=== PATIENT | male | born 1960 | race Caucasian/White ===

== ENCOUNTER 2023-01-27 19:05 | Emergency (ER) | payer OTHER, SELFPAY ==
[2023-01-27 19:12] VITALS: BP 147/88; PULSE 78; RESP 18; TEMP 36.1; O2SAT 96
--- NOTE | 2023-01-27 19:26 | CRLHL7_ITS ---
For Patients: As a result of the Cures Act, medical imaging exams and procedure reports are released immediately into your electronic medical record. You may view this report before your referring provider. If you have questions, please contact your health care provider. INDICATION: Headache, recent subdural hematoma - nontraumatic. COMPARISON: CT head 01/23/2023. TECHNIQUE: CT of the head without IV contrast. Coronal and sagittal reconstructions. FINDINGS: Again seen is a hyperdense subdural hematoma overlying the right cerebral hemisphere measuring up to 8 mm in greatest radial diameter. This is not significantly changed compared to prior exam. There is mass effect with effacement of sulci and partial effacement of the right lateral ventricle. There is right to left midline shift measuring 5 mm at the level the septum pellucidum. This appears slightly increased. Trace subdural hematoma along the right aspect of the interhemispheric fissure and right tentorium measuring 1-2 mm similar to prior exam. No new intracranial hemorrhage identified. No evidence of acute infarct. No obstructive hydrocephalus. Orbits and extraocular muscles are symmetric. Small focus of mucosal thickening in the posterior right maxillary sinus. The visualized paranasal sinuses and mastoid air cells are otherwise clear. No acute fracture identified. Soft tissues are unremarkable. IMPRESSION: 1. No significant interval change in size of the hyperdense right subdural hematoma. Persistent mass effect with slightly increased vjcry-ae-[id number] midline shift. 2. No other new acute intracranial findings. Please note that all CT scans at this facility use dose modulation, iterative reconstruction, and/or weight-based dosing when appropriate to reduce radiation dose to as low as reasonably achievable. Dictated by Mar Arrieta MD @ 01/27/2023 8:17:42 PM (Electronically Signed)
--- NOTE | 2023-01-27 19:26 | ED.HA ---
HPI - Headache General Chief Complaint: Headache/Migraine Stated Complaint: Subdermal Hematoma Pain Time Seen by Provider: 01/27/23 19:18 History of Present Illness HPI Narrative: This 62-year-old male comes in reporting worsening headache on the right side of his head. He was diagnosed at [facility] with a subdural hematoma about a week ago. He was discharged and instructed to return if symptoms worsen at all. He does not report any injury event and is not of course taking any anticoagulants. He does take Tylenol and oxycodone every 4 hours and states that this is not helping him at all anymore. He does not describe any new neurologic deficits. He does have some mild left arm and leg symptoms but these are not observable as he ambulates normally. Review of Systems Status of ROS: Reports: 10 or more systems reviewed and unremarkable except as noted in History and below Narrative: Constitutional: No fevers, no weight gain or loss. Eyes: No discharge. No vision changes. HENT: No congestion, no sore throat, no ear pain. Cardiovascular: No chest pain, no palpitations. Respiratory: No shortness of breath, no wheezes, no cough. Gastrointestinal: No abdominal pain, no vomiting, no diarrhea. Genitourinary: No dysuria, no hematuria. Musculoskeletal: Normal range of motion. Skin: No rashes, no pruritis. Neurological: No dizziness, weakness, sensory change, speech change. Endo/Heme/Allergies: No bruising or bleeding. No polydipsia. Pysch: no suicidality, no anxiety, no insomnia. All other systems reviewed and are negative. PFS PFS Social History Smoking Status: Never smoker Do you use any of these nicotine containing products: None Non-prescribed substance use: denies use service: Yes Exam Narrative: Exam Narrative: Constitutional: Well-developed, well-nourished. HEENT: Normocephalic, atraumatic. Neck: Normal range of motion. Nontender. Supple. Heart: Intact distal pulses. Lungs: No chest discomfort. No wheezes, rhonchi, or rales. Abdomen: Nontender. Back: Normal range of motion. Extremities: Normal range of motion. No injury. Skin: Intact. No rash. Warm. No erythema or pallor. Neurologic: No altered sensation. No weakness. Alert and oriented. Psychiatric: No suicidality. No anxiety or depression. No insomnia. Nursing notes and vitals signs are reviewed. Const: Vital Signs, click to edit/add: Vital Signs - 24 hr 01/27/23 19:12 01/27/23 19:40 01/27/23 20:22 Temperature 97.0 F L Pulse Rate [Left P ulse Oximeter] 78 77 75 Respiratory Rate 18 18 18 Blood Pressure [Ri ght Upper Arm] 147/88 H 128/91 H 131/104 H Pulse Oximetry 96 94 95 Oxygen Delivery Me thod Room Air Room Air Room Air 01/27/23 20:39 Temperature Pulse Rate [Left P ulse Oximeter] 76 Respiratory Rate 18 Blood Pressure [Ri ght Upper Arm] 138/96 H Pulse Oximetry 95 Oxygen Delivery Me thod Room Air Course Vital Signs Vital signs: Initial Vital Signs Temperature 97.0 F L 01/27/23 19:12 Temperature Source Temporal Artery Scan 01/27/23 19:12 Pulse Rate 78 01/27/23 19:12 Pulse Rhythm Regular 01/27/23 19:12 Respiratory Rate 18 01/27/23 19:12 Blood Pressure 147/88 H 01/27/23 19:12 Blood Pressure Mean 107 01/27/23 19:12 Blood Pressure Position Sitting 01/27/23 19:12 Pulse Oximetry 96 01/27/23 19:12 Oxygen Delivery Method Room Air 01/27/23 19:12 Vital Signs Temperature 97.0 F L 01/27/23 19:12 Pulse Rate 78 01/27/23 19:12 Respiratory Rate 18 01/27/23 19:12 Blood Pressure 147/88 H 01/27/23 19:12 Pulse Oximetry 96 01/27/23 19:12 Oxygen Delivery Method Room Air 01/27/23 19:12 Temperature 97.0 F L 01/27/23 19:12 Pulse Rate 76 01/27/23 20:39 Respiratory Rate 18 01/27/23 20:39 Blood Pressure 138/96 H 01/27/23 20:39 Pulse Oximetry 95 01/27/23 20:39 Oxygen Delivery Method Room Air 01/27/23 20:39 MDM - Headache MDM Narrative Medical decision making narrative: This patient was diagnosed with a subdural hematoma about fiber 6 days ago. This seemed to occur spontaneously without any injury event. He comes in today because of worsening headache but does not have any new neurologic symptoms otherwise. A CT scan of his head is obtained and comparison views are made showing no change in the findings. This is reassuring to the patient. He is taking Percocet and Tylenol but states that this medicine is not helped him very much today. He did receive an intramuscular injection of morphine 10 mg. IA encouraged him to follow-up with his primary physician for ongoing pain management. He understands that we will not repeat such injections here for ongoing management of his subdural hematoma. I did describe signs and symptoms that would indicate a need for return and re-evaluation. Imaging Data CT scan - head: Radiologist's impression: FINDINGS: Again seen is a hyperdense subdural hematoma overlying the right cerebral hemisphere measuring up to 8 mm in greatest radial diameter. This is not significantly changed compared to prior exam. There is mass effect with effacement of sulci and partial effacement of the right lateral ventricle. There is right to left midline shift measuring 5 mm at the level the septum pellucidum. This appears slightly increased. Trace subdural hematoma along the right aspect of the interhemispheric fissure and right tentorium measuring 1-2 mm similar to prior exam. No new intracranial hemorrhage identified. No evidence of acute infarct. No obstructive hydrocephalus. Orbits and extraocular muscles are symmetric. Small focus of mucosal thickening in the posterior right maxillary sinus. The visualized paranasal sinuses and mastoid air cells are otherwise clear. No acute fracture identified. Soft tissues are unremarkable. IMPRESSION: 1. No significant interval change in size of the hyperdense right subdural hematoma. Persistent mass effect with slightly increased [id number] midline shift. 2. No other new acute intracranial findings. Discharge Plan Discharge Clinical Impression: Acute subdural hematoma Patient Disposition: Home, Self-Care Condition: Unchanged Additional Instructions: Continue current plans. Return if worsening symptoms happen. Follow up with MD otherwise for ongoing management. Follow Up/Referrals: Provider,Not a Local [Primary Care Provider] - Stand Alone Forms: [employer] Info Instructions
[2023-01-27 19:40] VITALS: BP 128/91; PULSE 77; RESP 18; O2SAT 94
--- NOTE | 2023-01-27 19:45 | PC.NURSE ---
patient at CT
[2023-01-27 20:22] VITALS: BP 131/104; PULSE 75; RESP 18; O2SAT 95
[2023-01-27 20:39] VITALS: BP 138/96; PULSE 76; RESP 18; O2SAT 95
[2023-01-27] MEDS: MORPHINE 10 MG/ML inj IM (21:03)
[2023-01-27 21:08] VITALS: BP 141/101; PULSE 78; RESP 18
== END 2023-01-27 21:09 | disposition home or self-care (01) ==
PROVIDERS: Emergency Provider Emergency Medicine Emergency Medical Services
DX: I62.01 Nontraumatic acute subdural hemorrhage (principal)
CPT/HCPCS: 70450; 96372; 99283; 99284; J2270

== ENCOUNTER 2023-01-31 17:33 | Emergency (ER) | payer OTHER, SELFPAY ==
[2023-01-31] VITALS (22 sets, daily range): BP systolic 123–157; BP diastolic 68–99; PULSE 75–95; RESP 15–18; TEMP 36.9; O2SAT 91–95; BMI 24.4
--- NOTE | 2023-01-31 18:05 | CRLHL7_ITS ---
For Patients: As a result of the Century Cures Act, medical imaging exams and procedure reports are released immediately into your electronic medical record. You may view this report before your referring provider. If you have questions, please contact your health care provider. CT HEAD DATE: 01/31/2023 CLINICAL HISTORY: Patient with subdural hemorrhage. TECHNIQUE: Standard CT scanning of the head was performed. COMPARISON: 01/27/2023. FINDINGS: There has been interval increase in the size of the mixed-density right hemispheric subdural, previously measuring 5mm in thickness and now measuring 10mm in thickness over the right frontal lobe. There has also been interval increase in the mass effect on the underlying brain parenchyma, now with 12mm of leftward midline shift at the level of the foramen of Monro (previously 5mm). The thomas matter-white matter differentiation is intact. The calvarium is unremarkable. The orbits are unremarkable. The paranasal sinuses are unremarkable. The mastoid air cells are unremarkable. The soft tissues are unremarkable. IMPRESSION: Interval increase in the size of the mixed-density right hemispheric subdural, now measuring 10mm in thickness over the right frontal lobe (previously 5mm). There has also been interval increase in the mass effect on the underlying brain parenchyma, now with 12mm of leftward midline shift at the level of the foramen of Monro (previously 5mm). Neurosurgical consultation is recommended. Findings were communicated to Dr. Diane at 6:57 PM, within 5 minutes of initial identification. Please note that all CT scans at this facility use dose modulation, iterative reconstruction, and/or weight-based dosing when appropriate to reduce radiation dose to as low as reasonably achievable. Dictated by: Carlos Manuel Byrd MD @ 01/31/2023 19:00:05 (Electronically Signed)
[2023-01-31] MEDS: 0.9 % SODIUM CHLORIDE 1000 ml 1,000 ML IV (18:30)
[2023-01-31] MEDS: ONDANSETRON 2 MG/ML inj 4 MG IVP (18:30)
[2023-01-31] MEDS: MORPHINE 4 MG/ML INJ IVP ×2 (18:31→21:52)
[2023-01-31 18:42] LABS: Lactate* 1.7 mmol/L (0.5-1.9)
[2023-01-31 18:45] LABS: Red Blood Count 4.96 m/uL (4.30-5.90); White Blood Count* 8.03 K/uL (4.50-11.00)
[2023-01-31 18:46] LABS: Basophils Percent Auto 0.1 % (0.0-3.0); Eosinophils Percent Auto 0.1 % (0.0-7.0); Hematocrit 45.8 % (37.0-53.0); Hemoglobin* 15.5 gm/dL (13.5-17.5); Immature Granulocytes Pct Auto 0.1 %; Lymphocytes Percent Auto 8.7 % (20-44); Mean Corpuscular HGB Conc 34 gm/dL (32-36); Mean Corpuscular Hemoglobin 31 pg (26-34); Mean Corpuscular Volume 92 fL (80-100); Monocytes Percent Auto 5.9 % (0.0-11.0); Neutrophils Percent Auto 85.1 % (42.0-72.0); Platelet Count* 272 K/uL (140-440); RDW Coefficient of Variation % 12.6 % (11.5-15.5); Slide Review Reflex No
[2023-01-31 19:05] LABS: Chloride* 104 mmol/L (96-114); Sodium* 136 mmol/L (135-149)
[2023-01-31 19:06] LABS: Potassium* 4.4 mmol/L (3.6-5.1)
[2023-01-31 19:08] LABS: Creatinine* 0.8 mg/dL (0.5-1.5); Est. Creatinine Clearance* 75.61; Estimated Glomerular Filt Rate 99 ml/min
[2023-01-31 19:09] LABS: Blood Urea Nitrogen* 14 mg/dL (7-30); Calcium* 9.4 mg/dL (8.4-10.6); Carbon Dioxide* 23 mmol/L (20-32); Glucose* 120 mg/dL (60-115)
--- NOTE | 2023-01-31 19:10 | ED.GENADULT ---
HPI - General Adult General Chief complaint: Nausea/Vomiting Stated complaint: Vomiting, can't keep meds down Time Seen by Provider: 01/31/23 17:38 Source: patient Mode of arrival: ambulatory Limitations: no limitations History of Present Illness HPI narrative: 62-year-old male coming in today complaining of worsening headache. Patient was diagnosed with a spontaneous subdural hematoma last week and was hospitalized at [facility]. He was sent home on Thursday with close follow-up recommended. He return to our ER on the 27 of January complaining of worsening headache. At that time he had a head CT done which stated that he had an 8 mm subdural hematoma that was unchanged from previous scan. Today again he returns for worsening symptoms. States that he continues to be slightly confused but this is unchanged. Denies any new focal neurologic deficits. No slurred speech or weakness. He states that his headache is so bad that he can not function. He started vomiting today. Denies fevers. No blurry vision or changes in his hearing. Related Data Home Medications Medication Instructions Recorded Confirmed bupropion HCl 150 mg tablet,12 hr PO 01/31/23 sustained-release ondansetron 8 mg disintegrating mg PO 01/31/23 tablet oxycodone 5 mg tablet mg PO 01/31/23 Allergies Allergy/AdvReac Type Severity Reaction Status Date / Time No Known Drug Allergies Allergy Verified 01/31/23 21:53 Review of Systems Status of ROS: Reports: 10 or more systems reviewed and unremarkable except as noted in History and below [facility] Social History Smoking Status: Unknown if ever smoked Do you use any of these nicotine containing products: None How often do you have a drink containing alcohol: 4 or more times a week AUDIT-C Alcohol total score: 4 Non-prescribed substance use: denies use service: Yes Exam Narrative: Exam Narrative: Well-nourished well-developed patient in speaks slowly, keeps eyes closed. Alert and oriented x3. Answers questions appropriately. Thoughts are goal oriented and rational. No tangential or magical thinking noted. Patient speaks in full sentences without needing to catch his breath. Speech is not slurred or pressured. HEENT: Normocephalic atraumatic. Pupils are equally round reactive to light. Extraocular muscles are intact. Conjunctivae are moist without any icterus noted. Moist mucous membranes. Cardiovascular: Heart is regular rate and rhythm S1 and S2 are present without any murmurs. Lungs: Clear to auscultation bilaterally no wheezes rhonchi or rales are appreciated. Patient takes deep breaths without any discomfort. Abdomen: Soft and nontender nondistended with normal bowel sounds. Extremities: Bilateral lower extremities are without edema. Normal DP and PT pulses. Skin: Well perfused without any obvious rashes. Strength is 5/5 of the upper and lower extremities. Cranial nerves 3-12 are normal. Zljdvo-rh-ggkn is normal. There is no nystagmus either horizontally or vertically. Gait is normal. Const: Vital Signs, click to edit/add: Vital Signs - 24 hr 01/31/23 17:49 01/31/23 18:42 01/31/23 19:21 Temperature 98.4 F Pulse Rate 80 Pulse Rate [Pulse Oximeter] 95 78 Respiratory Rate 15 18 Blood Pressure Blood Pressure [Ri ght Upper Arm] 145/99 H 143/76 H Pulse Oximetry 95 91 92 [facility] 01/31/23 19:30 01/31/23 19:32 01/31/23 19:37 Temperature Pulse Rate 84 84 75 Pulse Rate [Pulse Oximeter] Respiratory Rate Blood Pressure 154/92 H 147/92 H Blood Pressure [Ri ght Upper Arm] Pulse Oximetry 93 92 92 [facility] 01/31/23 19:45 01/31/23 20:00 01/31/23 20:02 Temperature Pulse Rate 80 82 86 Pulse Rate [Pulse Oximeter] Respiratory Rate Blood Pressure 150/96 H Blood Pressure [Ri ght Upper Arm] Pulse Oximetry 93 91 92 [facility] 01/31/23 20:15 01/31/23 20:30 01/31/23 20:32 Temperature Pulse Rate 84 82 86 Pulse Rate [Pulse Oximeter] Respiratory Rate Blood Pressure 135/81 Blood Pressure [Ri ght Upper Arm] Pulse Oximetry 95 95 95 [facility] 01/31/23 20:45 01/31/23 21:00 01/31/23 21:02 Temperature Pulse Rate 82 83 81 Pulse Rate [Pulse Oximeter] Respiratory Rate Blood Pressure 157/94 H Blood Pressure [Ri ght Upper Arm] Pulse Oximetry 94 94 95 [facility] 01/31/23 21:15 01/31/23 21:20 01/31/23 21:30 Temperature Pulse Rate 90 84 85 Pulse Rate [Pulse Oximeter] Respiratory Rate Blood Pressure 147/98 H Blood Pressure [Ri ght Upper Arm] Pulse Oximetry 94 95 95 Oxygen Delivery Me thod 01/31/23 21:31 01/31/23 21:32 01/31/23 22:01 Temperature Pulse Rate 89 78 Pulse Rate [Pulse Oximeter] Respiratory Rate Blood Pressure 156/95 H 123/68 Blood Pressure [Ri ght Upper Arm] Pulse Oximetry 95 95 Oxygen Delivery Me thod 01/31/23 22:32 Temperature Pulse Rate Pulse Rate [Pulse Oximeter] Respiratory Rate Blood Pressure 150/89 H Blood Pressure [Ri ght Upper Arm] Pulse Oximetry Oxygen Delivery Me thod Course Course Hospital Course: IV was established and patient received normal saline IV morphine. Head CT was done showing increase in size of the subdural hematoma with an increase in the parenchymal left shift. Patient was discussed with shipping support at [facility]-will be accepting him for readmission, however there is a 4 hour wait for a bed. In the meantime they recommend 500 mg of IV Keppra. EKG, read by me, shows normal sinus rhythm with a pulse of 76, left axis deviation. Lab work unremarkable. Systolic blood pressure was maintained at 150 or less. Vital Signs Vital signs: Initial Vital Signs Temperature 98.4 F 01/31/23 17:49 Temperature Source Temporal Artery Scan 01/31/23 17:49 Pulse Rate 95 01/31/23 17:49 Pulse Rhythm Regular 01/31/23 17:49 Respiratory Rate 15 01/31/23 17:49 Blood Pressure 145/99 H 01/31/23 17:49 Blood Pressure Mean 114 01/31/23 17:49 Pulse Oximetry 95 01/31/23 17:49 Oxygen Delivery Method Room Air 01/31/23 17:49 Vital Signs Temperature 98.4 F 01/31/23 17:49 Pulse Rate 95 01/31/23 17:49 Respiratory Rate 15 01/31/23 17:49 Blood Pressure 145/99 H 01/31/23 17:49 Pulse Oximetry 95 01/31/23 17:49 Oxygen Delivery Method Room Air 01/31/23 17:49 Temperature 98.4 F 01/31/23 17:49 Pulse Rate 78 01/31/23 21:32 Respiratory Rate 18 01/31/23 18:42 Blood Pressure 150/89 H 01/31/23 22:32 Pulse Oximetry 95 01/31/23 21:32 Oxygen Delivery Method Room Air 01/31/23 18:42 Medical Decision Making MDM Narrative Medical decision making narrative: 62-year-old male with a subdural hematoma. Patient will be transferred to [facility] for further management. Medical Records Medical records reviewed: Yes I reviewed the patient's medical records Lab Data Lab results reviewed: Yes I reviewed the patient's lab results Labs: Lab Results 01/31/23 Range/Units 18:30 WBC 8.03 (4.50-11.00) K/uL RBC 4.96 (4.30-5.90) m/uL Hgb 15.5 (13.5-17.5) gm/dL Hct 45.8 (37.0-53.0) % MCV 92 (80-100) fL MCH 31 (26-34) pg MCHC 34 (32-36) gm/dL RDW Coeff of John 12.6 (11.5-15.5) % Plt Count 272 (140-440) K/uL Neut % (Auto) 85.1 H (42.0-72.0) % Lymph % (Auto) 8.7 L (20-44) % [place] % (Auto) 5.9 (0.0-11.0) % Eos % (Auto) 0.1 (0.0-7.0) % Baso % (Auto) 0.1 (0.0-3.0) % Neut # (Auto) 6.80 (1.7-7.0) K/uL Lymph # (Auto) 0.70 L (0.90-2.90) K/uL [place] # (Auto) 0.50 (0.00-0.90) K/UL Eos # (Auto) 0.00 (0.00-0.50) K/uL Baso # (Auto) 0.00 (0.00-0.30) K/uL Sodium 136 (135-149) mmol/L Potassium 4.4 (3.6-5.1) mmol/L Chloride 104 (96-114) mmol/L Carbon Dioxide 23 (20-32) mmol/L BUN 14 (7-30) mg/dL Creatinine 0.8 (0.5-1.5) mg/dL Estimated Creat Clear 75.61 Estimated GFR 99 ml/min Glucose 120 H (60-115) mg/dL Lactate 1.7 (0.5-1.9) mmol/L Calcium 9.4 (8.4-10.6) mg/dL Troponin I < 0.01 L (0.01-0.04) ng/mL C-Reactive Protein 5.0 H (0.5-1.0) mg/dL Ethyl Alcohol < 0.01 L (0.01-0.03) % Imaging Data CT scan - head: Attestation: I have reviewed the pertinent imaging results. Radiologist's impression: [place] [address] Diagnostic Imaging Report Patient: Loyd Gutierrez MR#: [id number] : 1960 Acct:[id number] Loc: ED Service Date: 01/31/[address]: Ordering Physician: Carolyn Diane M.D. Date of Service: 01/31/23 Procedure(s): CT head/brain wo con Accession Number(s): [id number] cc: Carolyn Diane M.D.; Provider,Not a Local ~ For Patients:? As a result of the Cures Act, medical imaging exams and procedure reports are released immediately into your electronic medical record.? You may view this report before your referring provider.? If you have questions, please contact your health care provider. CT HEAD DATE: 01/31/2023 CLINICAL HISTORY: Patient with subdural hemorrhage. TECHNIQUE: Standard CT scanning of the head was performed. COMPARISON: 01/27/2023. FINDINGS: There has been interval increase in the size of the mixed-density right hemispheric subdural, previously measuring 5mm in thickness and now measuring 10mm in thickness over the right frontal lobe. There has also been interval increase in the mass effect on the underlying brain parenchyma, now with 12mm of leftward midline shift at the level of the foramen of Monro (previously 5mm). The thomas matter-white matter differentiation is intact. The calvarium is unremarkable. The orbits are unremarkable. The paranasal sinuses are unremarkable. The mastoid air cells are unremarkable. The soft tissues are unremarkable. IMPRESSION: Interval increase in the size of the mixed-density right hemispheric subdural, now measuring 10mm in thickness over the right frontal lobe (previously 5mm). There has also been interval increase in the mass effect on the underlying brain parenchyma, now with 12mm of leftward midline shift at the level of the foramen of Monro (previously 5mm). Neurosurgical consultation is recommended. ECG Data Attestation: I personally reviewed and interpreted this ECG as follows: Discharge Plan Discharge Clinical Impression: Subdural hematoma Patient Disposition: Josselyn Rubalcava Condition: Stable Prescriptions: No Action bupropion HCl 150 mg tablet sustained-release 12 hr PO ondansetron 8 mg tablet,disintegrating PO oxycodone 5 mg tablet PO Stand Alone Forms: [employer] Info Instructions
[2023-01-31 19:20] LABS: Ethanol* < 0.01 % (0.01-0.03)
[2023-01-31 19:26] LABS: Troponin I* < 0.01 ng/mL (0.01-0.04)
--- NOTE | 2023-01-31 20:06 | ED.NURSE ---
Patient stable thus far after administration of morphine and zofran. Second IV site added. Resting comfortably. Cardiac and vital sign monitoring in place. No changes to neurological status since admission to ER. Friend went home while patient rests and waits for transport to [facility]. Updated provider that blood pressure systolic at 150. Keppra infused. Lights dim and head of bed at 30 degrees. Will continue to monitor until transfer.
--- NOTE | 2023-01-31 23:00 | ED.NURSE ---
Patient transferred to [facility]. Report called to nurses station and provided to EMS services. Patient will go to room number 6211.
== END 2023-01-31 23:01 | disposition home or self-care (01) ==
PROVIDERS: Emergency Provider Family Medicine
DX: I62.00 Nontraumatic subdural hemorrhage, unspecified (principal)
CPT/HCPCS: 36415; 70450; 80048; 82077; 83605; 84484; 85025; 86140; 93005; 94761; 96365; 96375; 99285; J1953; J2270; J2405; J7030

== ENCOUNTER 2023-01-31 23:00 | Outpatient (CLI) | payer OTHER, SELFPAY | END 2023-01-31 23:01 | disposition home or self-care (01) | PROVIDERS: Visit Provider Family Medicine | DX: I62.00 Nontraumatic subdural hemorrhage, unspecified (principal) | CPT/HCPCS: A0425; A0426; A0427 ==

== ENCOUNTER 2023-02-17 12:41 | Outpatient (CLI) | payer OTHER, SELFPAY ==
--- NOTE | 2023-02-17 13:00 | CRLHL7_ITS ---
For Patients: As a result of the Century Cures Act, medical imaging exams and procedure reports are released immediately into your electronic medical record. You may view this report before your referring provider. If you have questions, please contact your health care provider. Indication: Subdural hematoma follow up. Technique: CT of the brain was performed without intravenous contrast. Comparison: CT head 01/31/2023 and 01/27/2023. Findings: Postsurgical changes of right parietal craniectomy with mesh cranioplasty for subdural hematoma evacuation. Interval decrease in size of previously noted right frontal parietal subdural hemorrhage. There is small residual measuring up to 7 mm along the right frontal convexity. Residual hematoma demonstrates decreased attenuation, with evolution to chronic blood products. No new hemorrhage identified. There is improved mass effects, with improved, now 4 mm, previously 14 mm leftward midline shift. Improved mass effect, with re-expansion of the right lateral ventricle. No hydrocephalus. No acute blurring of the thomas-white differentiation. No depressed calvarial fracture. Impression: 1. Interval postsurgical changes of right frontoparietal craniotomy for subdural hemorrhage evacuation. Improvement of right subdural hemorrhage, with small residual along the right frontal convexity. 2. Interval significant improved mass-effect, with decreased leftward midline shift. 3. No new hemorrhage identified Please note that all CT scans at this facility use dose modulation, iterative reconstruction, and/or weight-based dosing when appropriate to reduce radiation dose to as low as reasonably achievable. Dictated by Nelson Marquez MD @ 02/18/2023 12:48:23 PM (Electronically Signed)
== END 2023-02-17 12:42 | disposition home or self-care (01) ==
DX: I62.00 Nontraumatic subdural hemorrhage, unspecified (principal)
CPT/HCPCS: 70450

== ENCOUNTER 2023-06-17 08:35 | Outpatient (CLI) | payer OTHER, SELFPAY ==
--- NOTE | 2023-06-17 09:00 | CRLHL7_ITS ---
For Patients: As a result of the Century Cures Act, medical imaging exams and procedure reports are released immediately into your electronic medical record. You may view this report before your referring provider. If you have questions, please contact your health care provider. INDICATION: Subdural hematoma follow-up. TECHNIQUE: CT of the head without contrast. Coronal and sagittal reformats. Bone and soft tissue algorithms. COMPARISON: CT head studies dated 04/13/2023 and 02/17/2023. FINDINGS: Postsurgical changes of right frontal cranioplasty. Trace residual subdural collection at the upper right frontal convexity (series 6, image 61) measuring approximately 2 millimeters in thickness. The thomas-white matter interface is preserved. No significant mass effect or midline shift. The ventricles are normal in size. No suspicious osseous lesion is identified. The orbits are unremarkable in appearance. Stable partially imaged polypoid mucosal thickening in the inferior right maxillary sinus. IMPRESSION: 1. Trace residual 2 mm subdural collection at the superior right frontal convexity. 2. No significant mass effect or midline shift. Please note that all CT scans at this facility use dose modulation, iterative reconstruction, and/or weight-based dosing when appropriate to reduce radiation dose to as low as reasonably achievable. Dictated by Casey Morales MD @ 06/17/2023 1:11:52 PM (Electronically Signed)
== END 2023-06-17 08:36 | disposition home or self-care (01) ==
LOC: CT 08:37
PROVIDERS: Visit Provider Nurse Practitioner Family
DX: I62.00 Nontraumatic subdural hemorrhage, unspecified (principal)
CPT/HCPCS: 70450

== ENCOUNTER 2024-01-28 17:45 | Emergency (ER) | payer OTHER, SELFPAY ==
[2024-01-28] VITALS (21 sets, daily range): BP systolic 117–135; BP diastolic 66–83; PULSE 92–119; RESP 16; TEMP 36.3; O2SAT 91–95; BMI 26.7
--- NOTE | 2024-01-28 17:52 | ED.GENADULT ---
HPI - General Adult General Date Seen: 01/28/24 Chief complaint: Head Injury/Pain Stated complaint: head pain, dizzy Time Seen by Provider: 01/28/24 17:52 History of Present Illness HPI narrative: 63-year-old male with a past medical history of subdural hematoma (occurred approximately 1 years ago, required surgical evacuation at [facility]) follow-up imaging as recently as June showed resolution. Per records from [facility] patient has a history of subdural hematoma, depression, emphysema, degenerative disc disease of his cervical spine, colonic diverticulosis, mixed hyperlipidemia, and second-degree AV block. He he underwent transcatheter embolization of the right middle meningeal artery and left middle meningeal artery for treatment of refractory right subdural hematoma. He was to follow-up outpatient with Neurosurgery, Dr. Barbra young. Related Data Home Medications Medication Instructions Recorded Confirmed ondansetron 8 mg disintegrating mg PO 01/31/23 tablet amlodipine 5 mg tablet 5 mg PO BID 01/28/24 01/28/24 levothyroxine .ROUTE 01/28/24 Previous Rx's Medication Instructions Recorded meclizine 25 mg tablet 25 mg PO TID PRN #10 tabs 01/28/24 Allergies Allergy/AdvReac Type Severity Reaction Status Date / Time acetaminophen [From Vicodin] Allergy Unknown Verified 01/28/24 20:17 hydrocodone [From Vicodin] Allergy Unknown Verified 01/28/24 20:17 PFSH PFS Social History Smoking Status: Unknown if ever smoked Do you use any of these nicotine containing products: None How often do you have a drink containing alcohol: 4 or more times a week AUDIT-C Alcohol total score: 4 Non-prescribed substance use: denies use service: Yes Exam Const: Vital Signs, click to edit/add: Vital Signs - 24 hr 01/28/24 17:47 01/28/24 18:06 01/28/24 18:15 Temperature 97.4 F L Pulse Rate 114 H 110 H Pulse Rate [Pulse Oximeter] 117 H Respiratory Rate 16 Blood Pressure Blood Pressure [Ri ght Upper Arm] 121/71 Pulse Oximetry 95 92 92 Oxygen Delivery Me thod Room Air Room Air 01/28/24 18:30 01/28/24 18:45 01/28/24 19:01 Temperature Pulse Rate 105 H 106 H 114 H Pulse Rate [Pulse Oximeter] Respiratory Rate Blood Pressure Blood Pressure [Ri ght Upper Arm] Pulse Oximetry 92 93 92 Oxygen Delivery Me thod 01/28/24 19:06 01/28/24 19:15 Temperature Pulse Rate 119 H 110 H Pulse Rate [Pulse Oximeter] Respiratory Rate Blood Pressure 117/71 Blood Pressure [Ri ght Upper Arm] Pulse Oximetry 93 93 Oxygen Delivery Me thod Course Vital Signs Vital signs: Initial Vital Signs Temperature 97.4 F L 01/28/24 17:47 Temperature Source Temporal Artery Scan 01/28/24 17:47 Pulse Rate 117 H 01/28/24 17:47 Respiratory Rate 16 01/28/24 17:47 Blood Pressure 121/71 01/28/24 17:47 Blood Pressure Mean 87 01/28/24 17:47 Blood Pressure Position Sitting 01/28/24 17:47 Pulse Oximetry 95 01/28/24 17:47 Oxygen Delivery Method Room Air 01/28/24 17:47 Vital Signs Temperature 97.4 F L 01/28/24 17:47 Pulse Rate 117 H 01/28/24 17:47 Respiratory Rate 16 01/28/24 17:47 Blood Pressure 121/71 01/28/24 17:47 Pulse Oximetry 95 01/28/24 17:47 Oxygen Delivery Method Room Air 01/28/24 17:47 Temperature 97.4 F L 01/28/24 17:47 Pulse Rate 110 H 01/28/24 19:15 Respiratory Rate 16 01/28/24 17:47 Blood Pressure 117/71 01/28/24 19:06 Pulse Oximetry 93 01/28/24 19:15 Oxygen Delivery Method Room Air 01/28/24 18:06 Medications Administered Medications: Generic Name Dose Route Start Last Admin Trade Name Freq PRN Reason Stop Dose Admin Sodium Chloride 1,000 mls @ 1,000 mls/hr 01/28/24 20:45 01/28/24 21:01 0.9 % Sodium Chloride 1000 Ml IV 01/28/24 21:44 1,000 mls/hr .Q1H ZOFIA Administration Discontinued Medications Generic Name Dose Route Start Last Admin Trade Name Freq PRN Reason Stop Dose Admin Sodium Chloride 1,000 mls @ 1,000 mls/hr 01/28/24 18:15 03/28/24 21:00 0.9 % Sodium Chloride 1000 Ml IV 01/28/24 19:14 Infused .Q1H ZOFIA Infusion Meclizine HCl 25 mg 01/28/24 18:12 01/28/24 18:21 Meclizine Hcl 25 Mg Tablet PO 01/28/24 18:13 25 mg ONCE ONE Administration Medical Decision Making MDM Narrative Medical decision making narrative: This is a 63-year-old gentleman who was sent to the ER today on the phone advice from his doctors at the [facility]. He has a history of a unexplained right subdural hematoma last year and had surgical evacuation for that. He has been having dizziness lately and his doctor sent him in to make sure there was not a recurrent subdural hematoma. Actually he has had recent about 3 weeks ago upper respiratory illness. That had gotten better, but was complicated by protracted cough. His doctors at the [facility] had put him on a week-long course of antibiotics about 2 weeks ago and now the cough is getting better. However for the past week or so he has had episodes of dizziness. These are described and sound like vertigo. They seem to be provoked by movement and better when he holds still. However on my neuro exam he does have resting horizontal nystagmus. We did obtain stat noncontrast head CT which is fortunately normal. No evidence for recurrent subdural hematoma or other intracranial mass. Differential for the vertigo would include central causes such as stroke. However at this point the patient is actually feeling better after fluids and meds. He is requesting discharge multiple times during the rest of his workup. In his defense with several days of symptoms , he would be outside the window for IV or IA tPA. I do think MRI of his brain would be more sensitive to look for brainstem or several infarct. However with his story of brief episodes of vertigo triggered by position change and head movement, would favor this is probably a peripheral vertigo Was also noted to have sinus tachycardia. He was complaining of mild shortness of breath which is been ongoing since his cold 3 weeks ago. This did prompt EKG which shows sinus tachycardia and no definite ischemia. Troponin is negative. He is not hypoxic but consider PE as evidence by shortness of breath and tachycardia. D-dimer is obtained and is abnormal. CT PA is obtained that is fortunately negative for PE. The CT scan does not show any evidence for pneumonia, pneumothorax, pulmonary edema, pleural effusion. CT does show evidence for bilateral perihilar lymph nodes that could be reactive. This would fit clinically with his recent respiratory illness. With the patient's clinical presentation and nystagmus also consider possible alcohol intoxication. Alcohol level is abnormal at 0.13. Discussed with the patient and his friends. Patient is minimizing his alcohol use and says that he had ?1 beer? when he was out to lunch today with his mother. He does not think drinking is a problem for him. Not interested in alcohol treatment at this time. Labs show normal LFTs. Normal kidney function and electrolytes. CBC shows normal white count and hemoglobin. CT abdomen pelvis shows a radiographically normal liver and no other evidence for intra-abdominal infection, aortic aneurysm or other acute surgical emergency. Laboratory workup does show elevated venous lactic at 3.9. Possibly could correlate with dehydration given recent viral illness, dizzy spells, and alcohol consumption. Bicarb is mildly low at 18. I have ordered 2 L of IV crystalloid with a plan to recheck lactic acid after completing his fluid bolus. After completion of about 1.75 L of saline heart rate is down to the 90s. Patient says he is feeling somewhat better. Discussed with the patient and his friends. Discussed with my partner Dr. Kelsey Jones. She will follow-up on the patient's pending lactic acid. If it is normalized from 3.9 anticipate he will be able to discharge home. I have written presumptive discharge instructions for vertigo. Prescription for Antivert. Need for follow-up with his doctors at the [facility]. questions answered to the patient and his friend prior to me leaving the department Lab Data Labs: Lab Results 01/28/24 01/28/24 Range/Units 17:55 18:02 WBC 7.78 (4.50-11.00) K/uL RBC 4.76 (4.30-5.90) m/uL Hgb 14.5 (13.5-17.5) gm/dL Hct 43.9 (37.0-53.0) % MCV 92 (80-100) fL MCH 31 (26-34) pg MCHC 33 (32-36) gm/dL RDW Coeff of John 13.7 (11.5-15.5) % Plt Count 247 (140-440) K/uL Neut % (Auto) 68.8 (42.0-72.0) % Lymph % (Auto) 25.6 (20-44) % [place] % (Auto) 4.6 (0.0-11.0) % Eos % (Auto) 0.6 (0.0-7.0) % Baso % (Auto) 0.3 (0.0-3.0) % Neut # (Auto) 5.35 (1.7-7.0) K/uL Lymph # (Auto) 1.99 (0.90-2.90) K/uL [place] # (Auto) 0.40 (0.00-0.90) K/UL Eos # (Auto) 0.05 (0.00-0.50) K/uL Baso # (Auto) 0.02 (0.00-0.30) K/uL Abs Immat Gran (auto) 0.01 (0.00-0.30) K/uL Imm/Tot Granulo (auto) 0.1 % D-Dimer Quant (PE/DVT) 2.49 H (0.00-0.50) ug/ml Sodium 144 (135-149) mmol/L Potassium 3.7 (3.6-5.1) mmol/L Chloride 112 (96-114) mmol/L Carbon Dioxide 18 L (20-32) mmol/L Anion Gap 14 (7-15) mEq/L BUN 16 (7-30) mg/dL Creatinine 1.0 (0.5-1.5) mg/dL Estimated Creat Clear 74.63 Estimated GFR 84 ml/min Glucose 140 H (60-115) mg/dL Lactate 3.9 H (0.5-1.9) mmol/L Calcium 9.3 (8.4-10.6) mg/dL Total Bilirubin 0.3 (0.1-1.5) mg/dL AST 25 (12-35) U/L ALT 28 (4-50) U/L Alkaline Phosphatase 79 (40-150) U/L Total Protein 8.3 (6.0-8.3) g/dL Albumin 4.6 (3.3-5.0) g/dL Ethyl Alcohol 0.13 H (0.01-0.03) % POC Troponin I 0.00 L (0.01-0.04) ng/ml Imaging Data CT scan - head: Attestation: I have reviewed the pertinent imaging results. Radiologist's impression: IMPRESSION: 1. No intracranial bleed or mass effect. 2. Status post right parietal craniotomy. CT scan - chest: Attestation: I have reviewed the pertinent imaging results. Radiologist's impression: IMPRESSION: 1. No pulmonary embolism. 2. [id number] centrilobular and paraseptal emphysema. Prominent bihilar and mildly enlarged right precarinal lymph node. These are nonspecific, possibly reactive. CT scan - abdomen: Attestation: I have reviewed the pertinent imaging results. Radiologist's impression: IMPRESSION: No acute findings within the abdomen and pelvis. Mild diverticulosis without evidence for diverticulitis. ECG Data Attestation: I personally reviewed and interpreted this ECG as follows: Interpretation: Sinus tachycardia. Rate 112 ID [id number] QRS axis low-voltage QRS. Left anterior fascicular block. Right axis deviation. ST segment/T wave: Nonspecific flattening. No ST segment elevation or depression QTc: 447 Discharge Plan Discharge Clinical Impression: Alcohol abuse, Vertigo, Adenopathy, hilar, Dehydration Patient Disposition: Home, Self-Care Condition: Stable Instructions: Dehydration (ED), Vertigo (DC), Alcohol Use Disorder (ED) Additional Instructions: Please follow-up with your primary care provider within the next 1-3 days for recheck. If you have worsening dizzy spells or any other worsening symptoms such as trouble breathing, chest pain, worsening cough, worsening headache, or any concerns, please come back to the ER right away. Use the vertigo medication-Antivert, if needed to help manage your dizzy spells. Prescriptions: New meclizine 25 mg tablet 25 mg PO TID PRNQty: 10 0RF No Action ondansetron 8 mg tablet,disintegrating PO amlodipine 5 mg tablet 5 mg PO BID levothyroxine .ROUTE Follow Up/Referrals: Provider,Not a Local [Primary Care Provider] - Stand Alone Forms: [employer] Info Instructions
--- NOTE | 2024-01-28 18:13 | CT_ITS ---
Patient: FLORENCIO MCKEON Facility:?[facility] Patient ID:?[id number] Site Patient ID:?[id number]. Site :?1960 Study:?CT-Head W/O-01/28/2024 6:27:50 PM Ordering Physician:ARSENIO Final Report: INDICATION: Vertigo TECHNIQUE: CT head without contrast. COMPARISON: Head CT 06/17/2023 FINDINGS: CSF spaces: Within normal limits for age. Brain parenchyma: The thomas-white differentiation is normal. No sign of mass, hemorrhage, or midline shift. Skull base and calvarium: The visualized paranasal sinuses and mastoid air cells demonstrate no acute or significant findings. The visualized orbits are grossly unremarkable. Status post right parietal craniotomy. IMPRESSION: 1. No intracranial bleed or mass effect. 2. Status post right parietal craniotomy. Please note that all CT scans at this facility use dose modulation, iterative reconstruction, and/or weight-based dosing when appropriate to reduce radiation dose to as low as reasonably achievable. Dictated by Eduardo Shirley MD @ 01/28/2024 7:13:32 PM Signed by:?Eduardo Shirley MD @01/28/2024 7:13:32 PM (Electronic Signature)
[2024-01-28] MEDS: MECLIZINE HCL 25 MG TABLET PO (18:21)
[2024-01-28] MEDS: 0.9 % SODIUM CHLORIDE 1000 ml 1,000 ML IV ×2 (18:21→21:01)
[2024-01-28 18:22] LABS: Basophils Absolute Auto 0.02 K/uL (0.00-0.30); Basophils Percent Auto 0.3 % (0.0-3.0); Eosinophils Absolute Auto 0.05 K/uL (0.00-0.50); Eosinophils Percent Auto 0.6 % (0.0-7.0); Hematocrit 43.9 % (37.0-53.0); Hemoglobin* 14.5 gm/dL (13.5-17.5); Immature Granulocytes Abs Auto 0.01 K/uL (0.00-0.30); Immature Granulocytes Pct Auto 0.1 %; Lymphocytes Absolute Auto 1.99 K/uL (0.90-2.90); Lymphocytes Percent Auto 25.6 % (20-44); Mean Corpuscular HGB Conc 33 gm/dL (32-36); Mean Corpuscular Hemoglobin 31 pg (26-34); Mean Corpuscular Volume 92 fL (80-100); Monocytes Percent Auto 4.6 % (0.0-11.0); Neutrophils Absolute Auto 5.35 K/uL (1.7-7.0); Neutrophils Percent Auto 68.8 % (42.0-72.0); Platelet Count* 247 K/uL (140-440); RDW Coefficient of Variation % 13.7 % (11.5-15.5); Red Blood Count 4.76 m/uL (4.30-5.90); White Blood Count* 7.78 K/uL (4.50-11.00)
[2024-01-28 18:36] LABS: Albumin* 4.6 g/dL (3.3-5.0); Chloride* 112 mmol/L (96-114)
[2024-01-28 18:37] LABS: Potassium* 3.7 mmol/L (3.6-5.1); Sodium* 144 mmol/L (135-149)
[2024-01-28 18:39] LABS: Anion Gap 14 mEq/L (7-15); Aspartate Amino Transferase* 25 U/L (12-35); Bilirubin Total* 0.3 mg/dL (0.1-1.5); Blood Urea Nitrogen* 16 mg/dL (7-30); Carbon Dioxide* 18 mmol/L (20-32); Est. Creatinine Clearance* 74.63; Estimated Glomerular Filt Rate 84 ml/min; Lactate* 3.9 mmol/L (0.5-1.9); Slide Review Reflex No; Total Protein* 8.3 g/dL (6.0-8.3)
[2024-01-28 18:40] LABS: Alanine Aminotransferase* 28 U/L (4-50); Alkaline Phosphatase* 79 U/L (40-150); Calcium* 9.3 mg/dL (8.4-10.6); Ethanol* 0.13 % (0.01-0.03); Glucose* 140 mg/dL (60-115)
[2024-01-28 18:42] LABS: D Dimer Quantitative* 2.49 ug/ml (0.00-0.50)
--- NOTE | 2024-01-28 19:22 | CT_ITS ---
Patient: FLORENCIO MCKEON Facility:?[facility] Patient ID:?[id number] Site Patient ID:?[id number]. Site :?1960 Study:?CT-Chest ANGIOI CHEST PE PROTOCOL-01/28/2024 8:14:41 PM Ordering Physician:ARSENIO Final Report: INDICATION: Dyspnea, tachycardia, elevated D-dimer. TECHNIQUE: CT chest PE was acquired with 100 cc Isovue 370 IV contrast. COMPARISON: CT abdomen and pelvis from the same day. FINDINGS: Heart and vasculature: Contrast opacification of the pulmonary arterial tree is adequate. No sign of pulmonary embolism. Heart size is normal. Thoracic aorta and pulmonary artery are normal in caliber. Lungs and pleura: Mild to moderate upper lobe predominant centrilobular and paraseptal emphysema. No consolidation, suspicious nodule, pleural effusion, or pneumothorax. Lymph nodes/mediastinum: Mildly prominent, but not pathologically enlarged bihilar lymph nodes. Mildly enlarged right precarinal lymph node measuring 1.3 cm in short axis. Chest wall: No masses. Upper abdomen: Dictated separately. Bones: Partially imaged cervical fusion hardware. Otherwise, unremarkable for age. IMPRESSION: 1. No pulmonary embolism. 2. [id number] centrilobular and paraseptal emphysema. Prominent bihilar and mildly enlarged right precarinal lymph node. These are nonspecific, possibly reactive. Please note that all CT scans at this facility use dose modulation, iterative reconstruction, and/or weight-based dosing when appropriate to reduce radiation dose to as low as reasonably achievable. Dictated by Anthony Nicole MD @ 01/28/2024 9:10:19 PM Signed by:?Anthony Nicole MD @01/28/2024 9:10:19 PM (Electronic Signature)
--- NOTE | 2024-01-28 20:04 | CT_ITS ---
Patient: FLORENCIO MCKEON Facility:?[facility] Patient ID:?[id number] Site Patient ID:?[id number]. Site :?1960 Study:?CT-Abdomen/Pelvis W/ 95CC ISOVUE 370-01/28/2024 8:16:13 PM Ordering Physician:ARSENIO Final Report: INDICATION: Abdominal pain. TECHNIQUE: CT abdomen and pelvis acquired with 95 cc Isovue 370 IV contrast. COMPARISON: Chest CT from the same day. FINDINGS: Lower chest: Dictated separately. Liver: Unremarkable. Normal in size and attenuation. No suspicious masses. Gallbladder and bile ducts: Unremarkable. No stones or inflammation. No biliary dilatation. Pancreas: Unremarkable. No mass or inflammation. Spleen: Unremarkable. Normal in size. No masses. Adrenal glands: Unremarkable. No nodules. Kidneys: Unremarkable. No suspicious masses, stones, or hydronephrosis. GI tract: Mild diverticulosis without pericolonic inflammation. No obstruction. Normal appendix. Vasculature: Normal caliber abdominal aorta with mild atherosclerotic calcification. Mesenteric arteries are patent. Lymph nodes: No lymphadenopathy. Peritoneum/Abdominal Wall: Unremarkable. No free air or significant free fluid. Pelvis: Unremarkable. Bones: Unremarkable for age. IMPRESSION: No acute findings within the abdomen and pelvis. Mild diverticulosis without evidence for diverticulitis. Please note that all CT scans at this facility use dose modulation, iterative reconstruction, and/or weight-based dosing when appropriate to reduce radiation dose to as low as reasonably achievable. Dictated by Anthony Nicole MD @ 01/28/2024 9:16:11 PM Signed by:?Anthony Nicole MD @01/28/2024 9:16:11 PM (Electronic Signature)
[2024-01-28 22:59] LABS: Lactate* 2.3 mmol/L (0.5-1.9)
== END 2024-01-28 23:26 | disposition home or self-care (01) ==
PROVIDERS: Emergency Provider Emergency Medicine
DX: R42 Dizziness and giddiness (principal); E86.0 Dehydration; F10.10 Alcohol abuse, uncomplicated; R59.9 Enlarged lymph nodes, unspecified
CPT/HCPCS: 36415; 70450; 71275; 74177; 80053; 82077; 83605; 84484; 85025; 85379; 93005; 96360; 96361; 99284; 99285; A9270; J7030; Q9967